=== PATIENT | female | born 1995 | race Caucasian/White ===

== ENCOUNTER 2023-01-19 15:02 | Emergency (ER) | payer BC ==
[2023-01-19] MEDS ORDERED: Sodium Chloride 0.9% 10 ML Syringe FLUSH PRN (15:17)
[2023-01-19] MEDS: Sodium Chloride 0.9% 1,000 ML IV ONE (15:40)
[2023-01-19] MEDS: Ondansetron 4 MG/2 ML SDV IVPUSH PRN (15:42)
[2023-01-19 16:04] LABS: ANION GAP 9.6 meq/L (7-15)
[2023-01-19 16:12] LABS: CORONAVIRUS COVID-19 NAA NEGATIVE (NEGATIVE); RESPIRATORY SYNCYTIAL VIR NAA NEGATIVE (NEGATIVE)
[2023-01-19] MEDS: Iopamidol 612 MG/ML 100 ML Bottle IVPUSH STA (16:59)
[2023-01-19] MEDS: Acetaminophen 500 MG Tab PO ONE (17:02)
== END 2023-01-19 17:35 | disposition home or self-care (01) ==
LOC: LL.ED 15:02
DX: N83.201 Unspecified ovarian cyst, right side (principal); N20.0 Calculus of kidney; K38.1 Appendicular concretions; Z88.2 Allergy status to sulfonamides; Z20.822 Contact with and (suspected) exposure to COVID-19
CPT/HCPCS: 0241U; 36415; 74177; 80053; 81001; 81025; 83605; 83690; 85025; 86140; 87040; 96361; 96374; 99284; 99284-25; A9270-GY; J2405; J7030; Q9967